=== PATIENT | female | born 1960 | race Caucasian/White ===

== ENCOUNTER 2024-05-17 01:57 | Outpatient (CLI) | payer MEDICARE, SELFPAY ==
--- NOTE | 2024-05-17 06:45 | DI.RAD_ITS ---
Exam(s) XR ARTHRITIS SERIES EXAM: XR ARTHRITIS SERIES CLINICAL HISTORY: bilateral hand arthritis,OA,M19.90. TECHNIQUE: 2D digital imaging was performed. Two views of both hands. COMPARISON: No exams were available for comparison FINDINGS: BONES: No acute fracture is present. No erosive or productive bony lesions are seen. JOINTS: No dislocation present. Mild narrowing of the interphalangeal joints of the fingers and mi ld periarticular spurring. Findings are more severe at the distal interphalangeal joint of the right index finger which shows more severe spurring. Degenerative changes are also noted at the at the sc aphoid trapezium trapezoid joint of the right hand and bilateral 1st carpal metacarpal joints. SOFT TISSUE: Normal. IMPRESSION: Findings consistent with osteo arthritis, greatest in the the distal interphalangeal joint of the rig ht finger. DATA REPOSITORY: RADIATION DOSE DELIVERED:
== END 2024-05-17 02:17 ==
LOC: DI 01:58
PROVIDERS: PCP Nurse Practitioner Family; Visit Provider Nurse Practitioner Family
DX: M18.31 Unilateral post-traumatic osteoarthritis of first carpometacarpal joint, right hand (principal)
CPT/HCPCS: 73120

== ENCOUNTER 2024-06-23 01:58 | Outpatient (CLI) | payer MEDICARE, SELFPAY ==
[2024-06-23 13:00] LABS: HCT 39.6 % (36.0-46.0); HGB 12.9 g/dL (11.2-15.7); MCH 29.8 pg (27.0-33.0); MCHC 32.6 % (32.0-36.0); MCV 92 fL (80-95); MPV 11.4 fL (8.0-11.0); Platelet Count 191 10^3/uL (130-400); RBC 4.33 10^6/uL (3.93-5.22); RDW 12.9 % (11.7-14.6); RDW-SD 43.6 fL; WBC 5.19 10^3/uL (4.4-10.8)
[2024-06-23 13:16] LABS: Hemoglobin A1C 5.6 % (<5.7)
[2024-06-23 13:25] LABS: ALT 83 U/L (14-59); AST 59 U/L (15-37); Albumin 3.8 g/dL (3.4-5.0); Alkaline Phosphatase 114 U/L (46-116); Anion Gap 10.1 mmol/L (3-11); BUN 17 mg/dL (7-18); Bilirubin, Total 0.81 mg/dL (0.2-1.0); CO2 25.9 mmol/L (21.0-32.0); CREATININE 0.8 mg/dL (0.55-1.02); Calcium 9.4 mg/dL (8.5-10.1); Calculated LDL 115 mg/dL (<100); Chloride 104 mmol/L (98-107); Cholesterol 248 mg/dL (<200); Estimated GFR 81.72 (mL/min/1.73m2); Glucose 90 mg/dL (74-106); HDL Cholesterol 104 mg/dL (40-60); Potassium 4.1 mmol/L (3.5-5.1); Sodium 140 mmol/L (136-145); TSH (W/Ref FT4) 0.74 uIU/mL (0.36-3.74); Total Protein 7.2 g/dL (6.4-8.2); Triglyceride 145 mg/dL (<150)
[2024-06-23 19:13] LABS: Hepatitis C Ab w Rflx HCV PCR Negative (Negative)
[2024-06-23 19:19] LABS: HBs Antibody, Quant <3.1 mIU/mL (See Note); Hep B Surface Ab Negative (See Note); Hepatitis B Core Antibody Negative (Negative); Hepatitis B Surface Antigen Negative (Negative)
[2024-06-23 19:21] LABS: HIV-1/2 Ag & Ab Screen Negative (Negative)
== END 2024-06-23 01:59 | disposition home or self-care (01) ==
LOC: LOS 01:58
PROVIDERS: PCP Nurse Practitioner Family; Visit Provider Nurse Practitioner Family
DX: Z11.59 Encounter for screening for other viral diseases (principal); E78.5 Hyperlipidemia, unspecified; Z11.4 Encounter for screening for human immunodeficiency virus [HIV]
CPT/HCPCS: 36415; 80053; 80061; 85027; 86704; 86706; 86803; 87340; 87389; 83036; 84443

== ENCOUNTER 2024-09-20 03:12 | Outpatient (CLI) | payer MEDICARE, SELFPAY ==
[2024-09-20 11:24] LABS: ALT 24 U/L (14-59); AST 20 U/L (15-37); Albumin 3.9 g/dL (3.4-5.0); Alkaline Phosphatase 83 U/L (46-116); Anion Gap 7.4 mmol/L (3-11); BUN 25 mg/dL (7-18); Bilirubin, Total 0.55 mg/dL (0.2-1.0); CO2 28.6 mmol/L (21.0-32.0); CREATININE 0.9 mg/dL (0.55-1.02); Calcium 9.5 mg/dL (8.5-10.1); Chloride 106 mmol/L (98-107); Estimated GFR 70.95 (mL/min/1.73m2); Glucose 91 mg/dL (74-106); Sodium 142 mmol/L (136-145); Total Protein 7.1 g/dL (6.4-8.2)
== END 2024-09-20 03:13 | disposition home or self-care (01) ==
LOC: LOS 03:12
PROVIDERS: PCP Nurse Practitioner Family; Visit Provider Nurse Practitioner Family
DX: R79.89 Other specified abnormal findings of blood chemistry (principal)
CPT/HCPCS: 36415; 80053

== ENCOUNTER 2024-11-08 01:10 | Outpatient (CLI) | payer MEDICARE, SELFPAY ==
--- NOTE | 2024-11-08 07:45 | DI.US_ITS ---
Exam(s) US BREAST LT COMPLETE US BREAST RT COMPLETE EXAM: US BREAST BILATERAL COMPLETE CLINICAL HISTORY: painful breast implants, mammograms too painful,rt breast pain,n64.4. TECHNIQUE: Complete ultrasound of BOTH BREASTS was performed including all 4 quadrants,. Both axill yogi regions are also scanned COMPARISON: There are no prior breast imaging studies. This patient apparently refuses to have mamm ograms. FINDINGS: There is no evidence of solid or significant cystic lesions in all 4 quadrants of both breasts. Bila teral implants are noted. There are few small benign-appearing lymph nodes in the axillary regions but no significant axillary adenopathy IMPRESSION: Bilateral breast implants. Negative bilateral complete breast ultrasound This patient apparently refused to have mammography. Please note that having ultrasound examinations without mammography does not exclude possibility of malignancy. BI-RADS Category 2 - Benign Findings Breast Density - Category B - Scattered areas of fibroglandular density Breast density Category C or D implies that the patient has dense breast tissue. Dense breast tissue can make it harder to find cancer on a mammogram. Dense breast tissue is also associated with an incr eased risk of breast cancer. This information about the result of the mammogram report was provided to the patient to raise their awareness. Use this report when you speak with the patient about their risks for breast cancer, which includes their family history. At that time, you may recommend additional screening tests (Ultrasoun d or MRI) as these tests may add significant information. A negative radiographic report should not delay biopsy if a dominant or clinically suspicious mass is present. Up to ten percent of cancers are not identified on mammography. A negative report may reinforce clinical impression. Adenosis and dense breasts may obscure an underlying neoplasm. False positive reports average 6 to 10%. Patient will receive a letter notifying them of these results.
== END 2024-11-08 01:30 ==
LOC: DI 01:10
PROVIDERS: PCP Nurse Practitioner Family; Visit Provider Nurse Practitioner Family
DX: N64.4 Mastodynia (principal); Z98.82 Breast implant status
CPT/HCPCS: 76642

== ENCOUNTER 2024-11-09 01:42 | Outpatient (CLI) | payer MEDICARE, SELFPAY ==
--- NOTE | 2024-11-09 07:00 | DI.DEXA_ITS ---
Exam(s) XR DEXA BONE DENSITY W/WO NICOLE EXAM: XR DEXA BONE DENSITY W/WO NICOLE CLINICAL HISTORY: osteoporosis screening,asymptomatic postmenopausal status,z78.0 TECHNIQUE: HoloSpecle Horizon C densitometer analysis of left hip, lumbar spine and left forearm. Lat eral survey image of the thoracic and lumbar spine. COMPARISON: No exams were available for comparison FINDINGS: Lateral view of the thoracic and lumbar spine shows no evidence of compression fractures. Bone mineral density measurements of the lumbar spine correspond to a total T-score of -1.6, in the osteopenic range Bone mineral density measurements of the left hip correspond to a total T-score of -2.1. The femora l neck T-score is -2.3, in the osteopenic range.. Theleft forearm bone mineral density measurements correspond to a T-score of the distal 3rd of -2.0, in the osteopenic range.. IMPRESSION: Osteopenia of the spine, hip and forearm.
== END 2024-11-09 02:02 ==
LOC: DI 01:42
PROVIDERS: PCP Nurse Practitioner Family; Visit Provider Nurse Practitioner Family
DX: Z78.0 Asymptomatic menopausal state (principal); M85.89 Other specified disorders of bone density and structure, multiple sites
CPT/HCPCS: 77080

== ENCOUNTER → 2024-11-30 14:16 | Outpatient (BNVA) | payer MEDICARE, SELFPAY | PROVIDERS: PCP Nurse Practitioner Family; Referring Provider Nurse Practitioner Family; Visit Provider Physical Therapy Assistant | DX: Z12.11 Encounter for screening for malignant neoplasm of colon (principal) ==

== ENCOUNTER 2024-12-15 09:54 | Day surgery (SDC) | payer MEDICARE, SELFPAY ==
--- NOTE | 2024-12-14 18:03 | W.PM.DSUDISC ---
Date of service: 12/15/24 Discharge Plan Disposition Patient Disposition: Home Condition: Good Discharge Details Reason For Visit: Screening colonoscopy Attending Provider: Reuben Balderas Primary Care Provider: Christiana Ojeda Home Meds and New Rx's Prescriptions: Discontinued bisacodyl [Dulcolax (bisacodyl)] 5 mg tablet,delayed release (DR/EC) 5 mg PO ONCE Qty: 4 0RF Rx Instructions: Take per colonoscopy instructions provided by ordering providers office polyethylene glycol 3350 17 gram/dose powder 17 g PO ONCE Qty: 238 0RF Rx Instructions: Take per colonoscopy instructions provided by ordering providers office Discharge Instructions Instructions: Diverticulosis Additional Instructions: Katelyn, was great meeting you today, and hope you feel great after the procedure. Everything went very smoothly. Your prep was excellent. I did not see any signs of tumors or polyps. Incidentally, you do have some diverticulosis. Diverticula are weak spots in the muscular layer of the colon wall that cause inside lining or mucosa to pucker pooch outwards a bit. These individual pockets are called diverticula, and the condition of having them is known as diverticulosis. Some patients experience inflammation and pain associated with this, we typically refer to those flareups as diverticulitis. Hopefully, years will never bother you. I did attach some basic information here about typical approaches to diverticular management. If you have any questions at all, please do not hesitate to ask. With an otherwise negative colonoscopy today, I would recommend a follow-up screening in 10 years. 1. If tolerated, consume a soft, low fiber diet for 1-2 days. 2[address] Do not drive, drink alcohol, operate machinery, make critical decisions, or do activities that require coordination or balance for 24 hours. 3. Because air was put into your colon during the procedure, expelling air from your rectum (passing gas or farting) is normal. 4. You may not have a bowel movement for 1-3 days because of the colonoscopy prep. This is normal. 5. Go directly to the emergency room if you notice any of the following: Develop chills (warm to touch), or if you have a thermometer and your temperature is above 101 Difficulty breathing or difficultly swallowing Persistent vomiting Severe abdominal pain, other than gas cramps Severe chest pain Black, tarry stools Any bleeding ? exceeding one tablespoon 6. Call your physician if the site where your intravenous was started becomes red, swollen, painful, and warm to touch. 7. Your physician has reviewed your pre-procedure medications. Please continue to take those medications as previously ordered. You will be given specific information/education regarding any changes to your medications before leaving. Stand Alone Forms: Anesthesia Discharge InstDilip Zaman (DSU) Activity:: Activity as Tolerated Diet:: As Tolerated Discharge Orders Discharge Orders: Discharge Order (Routine); Ordered 12/14/24 Ordered By: Reuben Balderas DS: Diagnosis Discharge Diagnosis (1) Encounter for screening colonoscopy: Status: Acute Asessment and Plan: Negative screening colonoscopy; recommend 10-year interval for neck screening
--- NOTE | 2024-12-14 18:04 | COLE_ITS ---
Date of service: 12/15/24 Time of Service: 12:49 Colonoscopy Report Date of procedure: 12/15/24 Pre-op diagnosis general: Screening colonoscopy Post-op diagnosis procedure note: other (Sigmoid diverticulosis) Procedure: Colonoscopy Surgeon: Reuben Balderas Anesthesia Type: General:No Airway Estimated blood loss (mL): 0 Pathology: none sent Complications: None Disposition: same day Indications: Katelyn is a 64-year-old woman who needs her next screening colonoscopy for routine health maintenance Prep: Miralax/Dulcolax Procedure Start Time: 12:17 Procedure End Time: 12:33 Retraction Time: 15 Findings: Sigmoid diverticulosis otherwise negative screening colonoscopy Procedure Description: After the induction of anesthesia, and with the patient in left lateral decubitus position, I began by performing an external anorectal exam.? Perineum and skin were normal, as was the anal verge.? There was no evidence of external hemorrhoids.? Next, I performed a digital rectal exam.? I did not appreciate any abnormal findings.? Next, I advanced a colonoscope into the rectal vault.? I performed retroflexion.? This appeared normal.? Using irrigation, I then advanced the colonoscope beyond the rectal folds and into the sigmoid colon bef ore advancing towards the cecum.? There is sigmoid diverticulosis.? There are some redundancy of the transverse and ascending colon that is easily navigated. The scope was noted to be in the cecum by identification of the ileocecal valve and appendiceal orifice.? I then began withdrawing the colonoscope using repeated irrigation as necessary for full evaluation of the colonic mucosa. ?Once the scope was withdrawn to the level of the rectum, great care was taken to examine portions of the rectal folds.? Finally, the scope was withdrawn and the patient was brought to the same-day surgery recovery unit as the anesthetic wore off. ?The findings and instructions were shared with the patient prior to discharge. [place] Bowel Prep [place] Bowel Prep Right Colon: 3 Left Colon: 3 Transverse Colon: 3 Total Score: 9
[2024-12-15 10:00] VITALS: BP 125/78; PULSE 84; RESP 16; TEMP 36; O2SAT 100
[2024-12-15] MEDS: Lactated Ringers 1,000 ML 80 ML IV (10:26)
--- NOTE | 2024-12-15 11:53 | ANES.PREOP_ITS ---
General Info Date of Service Date Performed: 12/15/24 Height: 5 ft 3 in Weight: 59 kg Body Mass Index (BMI): 23.0 Surgical Procedure: Operation Date: 12/15/24 11:20 Proposed Procedure Side Surgeon p Colonoscopy Reuben Balderas MD Meds Allergies and Home Medications Allergies Allergy/AdvReac Type Severity Reaction Status Date / Time No Known Allergies Allergy Verified 12/15/24 10:12 Current Visit Medications: Current Medications Generic Name Dose Route Start Last Admin Trade Name Freq PRN Reason Stop Dose Admin Ringer's Solution 1,000 mls @ 80 mls/hr 12/15/24 06:00 12/15/24 10:26 IV 12/15/24 23:59 80 mls/hr INFUSION PARMJIT Administration IV Miscellaneous Supplies 1 each 12/15/24 06:00 Iv Access IV 12/15/24 23:59 DIRECTED PARMJIT Ondansetron HCl 4 mg 12/14/24 18:04 Ondansetron 4 Mg/2 Ml Vial IVP 01/13/25 18:03 Q4H PRN PRN Nausea / Vomiting Sodium Chloride 0 ml 12/15/24 06:00 Normal Saline Flush 10 Ml Syr IV 12/15/24 23:59 PRN PRN Sodium Chloride 0 ml 12/15/24 06:00 Normal Saline 10 Ml Vial IJ 12/15/24 23:59 DIRECTED PRN Sterile Water 0 ml 12/15/24 06:00 Water,Injection,Sterile 10 Ml Vial IJ 12/15/24 23:59 DIRECTED PRN PFSH Active Problems Active Problems: Problem Status Onset Code Encounter for screening colonoscopy Acute Z12.11 Pain associated with breast implant Chronic T85.848A Hyperlipidemia Chronic E78.5 IBS (irritable bowel syndrome) Chronic K58.9 Medical History Medical History Endometriosis Surgical History Surgical History History of augmentation of both breasts (~2006) Hx of hysterectomy With bowel and bladder sling, ovaries remain Tobacco Smoking/Tobacco Use Status: Former Tobacco Use Passive smoking exposure: Yes Second hand exposure: Yes Alcohol Alcohol Intake: current Alcohol intake frequency: holidays/special occasions on ly Substance Use Substance use: Never Substance use type: does not use Vital Signs and Lab Results Vital Signs Most Recent Vital Signs in EMR: Most Recent Vital Signs Temp Pulse Resp BP Pulse Ox 36 C L 84 16 125/78 100 12/15/24 10:00 12/15/24 10:00 12/15/24 10:00 12/15/24 10:00 12/15/24 10:00 Lab Results Blood Type / Crossmatch: No Data to Display Complete Blood Count: No Data to Display Complete Metabolic Panel: No Data to Display Liver Function Panel: No Data to Display Coagulation Panel: No Data to Display Cardiac Panel: No Data to Display Arterial Blood Gas: No Data to Display Venous Blood Gas: No Data to Display Pancreas Panel: No Data to Display Thyroid Panel: No Data to Display Infectious Disease: No Data to Display Blood Cultures: No Data to Display Toxicology Panel: No Data to Display Anesthesia Assessment and Plan Anesthesia History Personal History: PONV Family History: No Family History of Anesthesia Complications Exercise Tolerance Exercise Tolerance: Metabolic Equivalents>4 Pertinent Negatives Pertinent Negatives: No Symptoms of GERD, No Major Cardiovascular Symptoms or Complaints and No Major Pulmonary Symptoms or Complaints Cardiac & Pulmonary Exam Cardiac Exam: Normal S1/S2 Heart Sounds Pulmonary Exam: Clear Bilateral Breath Sounds Implantable Cardiac Device Does patient have a Pacemaker or an ICD?: No Airway Exam Known Difficult Airway: No Mallampati Class: 1 Mouth Opening: Normal (> 3cm) Thyromental Distance: Greater than 3 cm Neck Range of Motion: Full ROM Neck Circumference: Normal Teeth Condition: Normal Dentition ASA Classification ASA Score: ASA 2 Emergency Case?: No NPO Status NPO Status: NPO Clears >2 hours, Solids >8 hours Anesthesia Plan Resuscitation Status: Full Code Anesthesia Technique: General Anesthesia Airway Planned: Natural Airway Monitors Used: Standard Monitors
[2024-12-15 11:55] VITALS: BMI 23.0
[2024-12-15 12:44] VITALS: BP 105/61; PULSE 74; RESP 17; TEMP 36.4; O2SAT 98
--- NOTE | 2024-12-15 13:02 | W.ANESPOSTOP ---
Postoperative Evaluation Date, Time and Location Date Performed: 12/15/24 Time Performed: 12:45 Patient Location: Day Surgery Unit Vital Signs Most Recent Imported Vital Signs: Most Recent Vital Signs Temp Pulse Resp BP Pulse Ox 36.4 C L 74 17 105/61 98 12/15/24 12:44 12/15/24 12:44 12/15/24 12:44 12/15/24 12:44 12/15/24 12:44 Pain Score Most Recent Pain Score: Most Recent Pain Score Pain Level 0 12/15/24 12:44 Assessment Mental Status: Awake (Alert & Oriented to Patient Baseline) Airway and Respiratory Function: Patent airway with normal (patient baseline) respiratory exam Cardiovascular Function: Hemodynamically Stable Hydration Status: Adequately Hydrated Nausea & Vomiting: No Nausea or Vomiting Pain: Pt. Denies Any Pain Peripheral Nerve Block: Patient did not receive a nerve block
[2024-12-15 13:15] VITALS: BP 121/74; PULSE 65; RESP 17; TEMP 36.5; O2SAT 99
--- NOTE | 2024-12-15 13:17 | PDOC.ANES ---
Date of service: 12/15/24 Time of Service: 13:17 Anesthesia Note Report Anesthesia Note: Per workload request for history of scoliosis: We found the anesthesia note from [facility] [place] dated 07/2024 and also reviewed her imaging. Note states lumbar spine midline is approx 0.5 cm left. It would be reasonable to attempt an epidural if patient were to request it, but there is a chance it could result in less coverage. I called Paulette and discussed the above. Patient is aware and is not planning on an epidural for labor. Informed her that it would not be a problem if she changes her mind. Paulette voiced understanding and denied any further questions. We will not need to meet her at her next appt.
== END 2024-12-15 13:20 | disposition home or self-care (01) ==
LOC: SUR 09:54
PROVIDERS: PCP Nurse Practitioner Family; Visit Provider Surgery
PROC: 0DJD8ZZ Inspection of Lower Intestinal Tract, Via Natural or Artificial Opening Endoscopic (ICD-10-PCS; CPT 45378; principal; 2024-12-15 11:15)
DX: Z12.11 Encounter for screening for malignant neoplasm of colon (principal); K57.30 Diverticulosis of large intestine without perforation or abscess without bleeding
CPT/HCPCS: G0121; J2003; J2704